=== PATIENT | male | born 1985 | race Caucasian/White ===

== ENCOUNTER → 2017-03-26 | Outpatient (CLI) | payer OTHER | LOC: KOH-I 09:53 | DX: R06.02 Shortness of breath (principal); I51.7 Cardiomegaly; J90 Pleural effusion, not elsewhere classified | CPT/HCPCS: 71020 ==

== ENCOUNTER → 2017-06-19 | Outpatient (CLI) | payer OTHER | LOC: CARD REHAB 06-06 13:00 | DX: Z48.812 Encounter for surgical aftercare following surgery on the circulatory system (principal) ==

== ENCOUNTER 2021-06-02 22:39 | Emergency (ER) | payer OTHER ==
[2021-06-02 23:11] LABS: HEMOGLOBIN 13.4 gm/dl (14.0-17.5); RED BLOOD COUNT 4.76 M/UL (4.20-5.50); WHITE BLOOD COUNT 12.2 K/UL (4.5-11.0)
[2021-06-02 23:39] LABS: BUN/CREATININE RATIO 15 (0-10)
== END 2021-06-02 23:55 ==
LOC: ER1 22:39
PROVIDERS: Emergency Medicine
DX: I63.00 Cerebral infarction due to thrombosis of unspecified precerebral artery (principal); U07.1 COVID-19; R29.708 NIHSS score 8; Z20.822 Contact with and (suspected) exposure to COVID-19
CPT/HCPCS: 70450; 70496; 70498; 80053; 82550; 82553; 84484; 85025; 85610; 85730; 93005; 99285; J2060; J2997; Q9967; U0002